=== PATIENT | male | born 1965 | race Caucasian/White ===

== ENCOUNTER → 2020-01-14 13:20 | Outpatient (CLI) | payer OTHER | END | disposition home or self-care (01) | LOC: D.CT 13:00 | PROVIDERS: ATTEND Nurse Practitioner Family | DX: R31.21 Asymptomatic microscopic hematuria (principal); R39.9 Unspecified symptoms and signs involving the genitourinary system ==

== ENCOUNTER → 2020-12-02 14:12 | Outpatient (CLI) | payer OTHER ==
--- NOTE | 2020-12-03 07:59 | ST ---
PATIENT:TALITA SOLORZANO MEDICAL RECORD: [id number] SEX: M LOCATION:[facility] ORDER #: ADMISSION DATE: 12/02/20 AGE OF PATIENT: 55 REFERRING PHYSICIAN: INTERPRETING PHYSICIAN: CONY HERNÁNDEZ MD DATE OF SERVICE: 12/02/2020 PROCEDURE: Treadmill stress test. Baseline ECG is normal. Exercised for 8 minutes and 14 seconds on Jeffrey protocol. Maximum heart rate 169 beats per minute, greater than 85% max predicted. No EKG changes of ischemia, no symptoms of ischemia. Normal blood pressure response to exercise. Fair to good exercise tolerance for age. TRANSINT:[id number] Voice Confirmation ID: [id number] DOCUMENT ID: [id number] CONY HERNÁNDEZ MD at [id number] CC: [id number] DICTATION DATE: 12/02/20 1630 MATERIAL LIAISON: 12/03/20 0014 DEP CLI 12/02/20 [id number] [place] [address]
== END | disposition home or self-care (01) ==
LOC: D.HCCARDIO 11-23 14:30
PROVIDERS: ATTEND Internal Medicine Interventional Cardiology
DX: R06.02 Shortness of breath (principal)